=== PATIENT | female | born 1940 | race Caucasian/White ===

== ENCOUNTER → 2018-12-02 | Outpatient (CLI) | payer MEDICARE, OTHER | LOC: CARD 13:28 | PROVIDERS: ATTEND Family Medicine | DX: I10 Essential (primary) hypertension (principal) | CPT/HCPCS: 93306 ==

== ENCOUNTER 2019-04-02 19:46 | Outpatient (CLI) | payer MEDICARE, OTHER | END 2019-04-03 06:20 | disposition home or self-care (01) | LOC: SLEEP 19:46 | PROVIDERS: ATTEND Family Medicine | DX: G47.33 Obstructive sleep apnea (adult) (pediatric) (principal); I10 Essential (primary) hypertension; R09.02 Hypoxemia | CPT/HCPCS: 95810 ==

== ENCOUNTER → 2019-11-18 | Outpatient (CLI) | payer MEDICARE, OTHER ==
[2019-11-18 11:16] LABS: CREATININE SERUM 0.97 MG/DL (0.60-1.30); POTASSIUM 4.2 MMOL/L (3.6-5.0)
[2019-11-18 11:17] LABS: ALBUMIN 4.4 GM/DL (3.2-4.5); BILIRUBIN,TOTAL 0.6 MG/DL (0.1-1.0); CALCIUM 9.6 MG/DL (8.5-10.1); TOTAL PROTEIN 6.9 GM/DL (6.4-8.2)
== END ==
LOC: LAB FS 08:38
PROVIDERS: ATTEND Family Medicine
DX: I10 Essential (primary) hypertension (principal); E03.9 Hypothyroidism, unspecified
CPT/HCPCS: 36415; 80053; 80061; 84443

== ENCOUNTER → 2020-06-26 | Outpatient (CLI) | payer MEDICARE, OTHER ==
[2020-06-26 11:49] LABS: POTASSIUM 4.4 MMOL/L (3.6-5.0)
[2020-06-26 11:50] LABS: ALBUMIN 4.5 GM/DL (3.2-4.5); BILIRUBIN,TOTAL 0.6 MG/DL (0.1-1.0); CREATININE SERUM 0.96 MG/DL (0.60-1.30); TOTAL PROTEIN 6.9 GM/DL (6.4-8.2)
== END ==
LOC: LAB FS 10:26
PROVIDERS: ATTEND Family Medicine
DX: E03.9 Hypothyroidism, unspecified (principal); I10 Essential (primary) hypertension
CPT/HCPCS: 36415; 80053; 80061; 84443

== ENCOUNTER → 2021-05-07 | Outpatient (CLI) | payer MEDICARE, OTHER ==
--- NOTE | 2021-05-07 15:54 | Diagnostic Imaging Report ---
Indication: Pain. Findings: Three-view right shoulder shows a glenohumeral and acromioclavicular osteoarthritis but no fracture, dislocation or bony destructive process. No opaque loose body. Impression: Substantial chronic arthritic changes but no acute appearing abnormality. Dictated by: Dictated on workstation # [id number]
== END ==
LOC: RAD FS 14:31
PROVIDERS: ATTEND Family Medicine
DX: M19.011 Primary osteoarthritis, right shoulder (principal)
CPT/HCPCS: 73030

== ENCOUNTER 2021-09-16 10:04 | Observation (INO) | payer MEDICARE, OTHER ==
[~2021-09-16] VITALS: Ht 157.4 cm; Wt 96.9 kg
[2021-09-16] MEDS: NS IV 1000 ML 1,000 ML IV SCH ×3 (02:00→16:12)
--- NOTE | 2021-09-16 11:55 | ED GI ---
General Chief Complaint: Rect Problems Stated Complaint: RECTAL BLEEDING Nursing Triage Note: AMB TO ED WITH RECTAL BLEEDNG ONSET THIS AM. DOES TAKE MOBIC AND ASA DAILY. Source of Information: Patient Exam Limitations: No Limitations History of Present Illness Date Seen by Provider: Sep 16, 2021 Time Seen by Provider: 11:30 Initial Comments Patient is an 80-year-old female who presents to the emergency department today with a chief complaint of lower GI bleeding. Patient states that she woke up this morning around 7 AM with an urge to go to the bathroom. She states she felt gassy and bloated. When she went to the bathroom she states she filled the toilet with blood. She went at least 7 more times at home before coming to the emergency department where she has subsequently had 2 more episodes of bloody stool. Patient states that she had a colonoscopy possibly 10 years ago. She has since done the Cologuard screening a couple of times and they have been normal. She states she was diagnosed with diverticulosis at her last colonoscopy. Patient does take Mobic 15 mg daily as well as a baby aspirin daily. She is on Pepcid. She has a history of hypertension. She is not a diabetic. She has never had GI bleeding in the past. She is not on any blood thinners. No history of coronary artery disease or stroke. No recent illnesses, no recent use of antibiotics. Denies dysuria, urgency or frequency. She states as she has been waiting to be seen here in the emergency department she has developed a little nausea. She has some lower abdominal discomfort. All other review of systems reviewed and negative except as stated. Timing/Duration: 4-6 Hours Severity/Quality: Severe Location: Suprapubic Radiation: No Radiation Activities at Onset: None Associated Symptoms: Nausea/Vomiting, Weakness (slightly weak feeling) Allergies and Home Medications Allergies Coded Allergies: Penicillins (Verified Allergy, Unknown, 09/16/21) hydrocodone (Verified Allergy, Unknown, 09/16/21) Patient Home Medication List Home Medication List Reviewed: Yes Acetaminophen/Diphenhydramine (Tylenol Pm Ex-Strength Caplet) 1 Each Tablet, 1 EACH PO HS, (Reported) Entered as Reported by: SOPHIE VIGREN on 09/16/21 1605 Last Action: Reviewed Aspirin (Aspirin) 81 Mg Tab.chew, 81 MG PO HS, (Reported) Entered as Reported by: SOPHIE VIRGEN on 09/16/21 160 Last Action: Reviewed Cyanocobalamin (Vitamin B-12) 100 Mcg Tablet, 100 MCG PO DAILY, (Reported) Entered as Reported by: SOPHIE VIRGEN on 09/16/21 161 Last Action: Reviewed Famotidine (Pepcid) 20 Mg Tablet, 20 MG PO, (Reported) Entered as Reported by: SOPHIE VIRGEN on 09/16/21 160 Last Action: Reviewed Irbesartan (Irbesartan) 75 Mg Tablet, 75 MG PO HS, (Reported) Entered as Reported by: SOPHIE VIRGEN on 09/16/211602 Last Action: Reviewed Levothyroxine Sodium (Synthroid) 50 Mcg Tablet, 50 MCG PO DAILY, (Reported) Entered as Reported by: SOPHIE VIRGEN on 09/16/211602 Last Action: Reviewed Meloxicam (Meloxicam) 15 Mg Tablet, 15 MG PO DAILY, (Reported) Entered as Reported by: SOPHIE VIRGEN on 09/16/211602 Last Action: Reviewed Pantoprazole Sodium (Pantoprazole Sodium) 40 Mg Tablet.dr, 40 MG PO DAILY, (Reported) Entered as Reported by: SOPHIE VIRGEN on 09/16/211602 Last Action: Reviewed Polyethylene Glycol 400 (Blink Tears) 15 Ml Drops, 1 DROP OP DAILY PRN for DRY EYES, (Reported) Entered as Reported by: SOPHIE VIRGEN on 09/16/21 160 Last Action: Reviewed Pravastatin Sodium (Pravastatin Sodium) 40 Mg Tablet, 40 MG PO HS, (Reported) Entered as Reported by: SOPHIE VIRGEN on 09/16/211602 Last Action: Reviewed Trazodone HCl (Trazodone HCl) 50 Mg Tablet, 50 MG PO HS, (Reported) Entered as Reported by: SOPHIE VIRGEN on 09/16/211602 Last Action: Reviewed Vit C/E/Zinc/Lutein/Zeaxanthin (Ocuvite Eye Health Gummies) 1 Each Tab.chew, 2 EACH PO DAILY, (Reported) Entered as Reported by: SOPHIE VIRGEN on 09/16/211606 Last Action: Reviewed Vitamin D (Vitamin D3) 10 Mcg Tablet, 400 MCG PO DAILY, (Reported) Entered as Reported by: SOPHIE VIRGEN on 09/16/21 160 Last Action: Reviewed Discontinued Medications Famotidine (Famotidine) 20 Mg Tablet, 20 MG PO HS, (Reported) Discontinued Reason: No Longer Taking Entered as Reported by: SOPHIE VIRGEN on 09/16/21 1604 Last Action: Discontinued Review of Systems Review of Systems Constitutional: see HPI EENTM: No Symptoms Reported Respiratory: No Symptoms Reported Cardiovascular: No Symptoms Reported Gastrointestinal: Abdominal Pain (lower abdominal discomfort), Nausea, Other (bloody stools) Genitourinary: No Symptoms Reported Musculoskeletal: no symptoms reported Skin: no symptoms reported Psychiatric/Neurological: No Symptoms Reported All Other Systems Reviewed Negative Unless Noted: Yes Past Urvtsmt-Tdgfpz-Dihdee Hx Patient Social History Tobacco Use?: No Use of E-Cig and/or Vaping dev: No Substance use?: No Alcohol Use?: No Immunizations Up To Date First/Initial COVID19 Vaccinat: NOV 27 Second COVID19 Vaccination Ant: DECEMBER COVID Vaccine Carrier Blower: [employer] Physical Exam Vital Signs Vital Signs - First Documented 09/16/21 10:13 Temp 36.5 Pulse 89 Resp 18 B/P (MAP) 189/93 (125) Pulse Ox 95 Capillary Refill : Less Than 3 Seconds Height/Weight/BMI Height: '" Weight: lbs. oz. kg; 37.00 BMI Method: General Appearance: WD/WN, no apparent distress HEENT: PERRL/EOMI Neck: normal inspection Respiratory: lungs clear, normal breath sounds, no respiratory distress, no accessory muscle use Cardiovascular: regular rate, rhythm (tachy 122 HR) Gastrointestinal: normal bowel sounds, soft, tenderness (mild LLQ abdominal tenderness to palpation) Rectal: heme positive stool, other (several small nonthrombosed hemmorhoids external, copious yajaira stool in the vault) Extremities: normal range of motion, non-tender, normal inspection, no pedal edema Neurologic/Psychiatric: no motor/sensory deficits, alert, normal mood/affect, oriented x 3 Skin: normal color, warm/dry Progress/Results/Core Measures Results/Orders Lab Results Laboratory Tests Test 09/16/21 12:00 Range/Units White Blood Count 7.4 4.3-11.0 10^3/uL Red Blood Count 4.00 3.80-5.11 10^6/uL Hemoglobin 12.6 11.5-16.0 g/dL Hematocrit 38 35-52 % Mean Corpuscular Volume 96 80-99 fL Mean Corpuscular Hemoglobin 32 25-34 pg Mean Corpuscular Hemoglobin Concent 33 32-36 g/dL Red Cell Distribution Width 12.4 10.0-14.5 % Platelet Count 247 130-400 10^3/uL Mean Platelet Volume 9.9 9.0-12.2 fL Immature Granulocyte % (Auto) 0 % Neutrophils (%) (Auto) 77 H 42-75 % Lymphocytes (%) (Auto) 14 12-44 % Monocytes (%) (Auto) 7 0-12 % Eosinophils (%) (Auto) 1 0-10 % Basophils (%) (Auto) 0 0-10 % Neutrophils # (Auto) 5.7 1.8-7.8 10^3/uL Lymphocytes # (Auto) 1.0 1.0-4.0 10^3/uL Monocytes # (Auto) 0.5 0.0-1.0 10^3/uL Eosinophils # (Auto) 0.1 0.0-0.3 10^3/uL Basophils # (Auto) 0.0 0.0-0.1 10^3/uL Immature Granulocyte # (Auto) 0.0 0.0-0.1 10^3/uL Prothrombin Time 14.7 12.2-14.7 SEC INR Comment 1.1 0.8-1.4 Activated Partial Thromboplast Time 32 24-35 SEC Sodium Level 142 135-145 MMOL/L Potassium Level 4.2 3.6-5.0 MMOL/L Chloride Level 107 98-107 MMOL/L Carbon Dioxide Level 24 21-32 MMOL/L Anion Gap 11 5-14 MMOL/L Blood Urea Nitrogen 19 H 7-18 MG/DL Creatinine 0.96 0.60-1.30 MG/DL Estimat Glomerular Filtration Rate 56 BUN/Creatinine Ratio 20 Glucose Level 115 H 70-105 MG/DL Calcium Level 9.6 8.5-10.1 MG/DL Corrected Calcium 9.3 8.5-10.1 MG/DL Total Bilirubin 0.7 0.1-1.0 MG/DL Aspartate Amino Transf (AST/SGOT) 22 5-34 U/L Alanine Aminotransferase (ALT/SGPT) 18 0-55 U/L Alkaline Phosphatase 56 40-136 U/L Total Protein 6.7 6.4-8.2 GM/DL Albumin 4.4 3.2-4.5 GM/DL My Orders Orders - PERNELL SWEENEY MD Ed Iv/Invasive Line Start (09/16/21 11:49) Cbc With Automated Diff (09/16/21 11:49) Comprehensive Metabolic Panel (09/16/21 11:49) Type And Screen (09/16/21 11:49) Protime With Inr (09/16/21 11:49) Partial Thromboplastin Time (09/16/21 11:49) Ondansetron Injection (Zofran Injectio (09/16/21 12:15) Ns Iv 1000 Ml (Sodium Chloride 0.9%) (09/16/21 12:15) Pantoprazole Injection (Protonix Injecti (09/16/21 13:15) Medications Given in ED Vital Signs/I&O 09/16/21 10:13 Temp 36.5 Pulse 89 Resp 18 B/P (MAP) 189/93 (125) Pulse Ox 95 Blood Pressure Mean: 125 Progress Progress Note : Time: 13:00 Progress Note Patient's hemoglobin at this time with only 6 hours and bleeding is 12. She does get quite tachycardic when she stands with heart rates as high as 130s to 140. She gets quite worn out with moving around getting up to get more comfortable in the bed. Blood pressure currently is 137/84. I have discussed the case with both Dr. Marinelli and Dr. Hguhes. We will keep the patient on clear liquids for now. 40 mg of Protonix twice daily. We will keep her on telemetry on the medical floor. Departure Communication (Admissions) Time/Spoke to Admitting Phy: 12:[address] Hughes; fluids, protonix 40 BID; to medical Time/Spoke to Consulting Phy: 12:[address] Marinelli; keep on clear liquids Impression Primary Impression: GI bleed Qualified Codes: K62.5 - Hemorrhage of anus and rectum Disposition: ADMITTED INPATIENT Condition: Stable Admissions Decision to Admit Reason: Admit from ER (General) Decision to Admit/Date: Sep 16, 2021 Time/Decision to Admit Time: 12:51 Departure-Patient Inst. Referrals: CLARISSA RATLIFF MD (PCP/Family) Primary Care Physician PERNELL SWEENEY MD Sep 16, 2021 11:55
[2021-09-16 12:11] LABS: BASOPHILS % (AUTO) 0 % (0-10); EOSINOPHILS # (AUTO) 0.1 10^3/uL (0.0-0.3); EOSINOPHILS % (AUTO) 1 % (0-10); HEMATOCRIT 38 % (35-52); HEMOGLOBIN 12.6 g/dL (11.5-16.0); LYMPHOCYTES % (AUTO) 14 % (12-44); MEAN CORPUSCULAR HEMOGLOBIN 32 pg (25-34); MEAN CORPUSCULAR HGB CONC 33 g/dL (32-36); MEAN CORPUSCULAR VOLUME 96 fL (80-99); MEAN PLATELET VOLUME 9.9 fL (9.0-12.2); MONOCYTES # (AUTO) 0.5 10^3/uL (0.0-1.0); MONOCYTES % (AUTO) 7 % (0-12); NEUTROPHILS # (AUTO) 5.7 10^3/uL (1.8-7.8); NEUTROPHILS % (AUTO) 77 % (42-75); PLATELET COUNT 247 10^3/uL (130-400); WHITE BLOOD COUNT 7.4 10^3/uL (4.3-11.0)
[2021-09-16] MEDS ORDERED: ONDANSETRON 4 MG/2 ML (SDV) Z0FRAN IVP ONE (12:15)
[2021-09-16 12:27] LABS: ALBUMIN 4.4 GM/DL (3.2-4.5); POTASSIUM 4.2 MMOL/L (3.6-5.0)
[2021-09-16 12:28] LABS: CALCIUM 9.6 MG/DL (8.5-10.1)
[2021-09-16 12:29] LABS: TOTAL PROTEIN 6.7 GM/DL (6.4-8.2)
[2021-09-16 12:31] LABS: BILIRUBIN,TOTAL 0.7 MG/DL (0.1-1.0)
[2021-09-16 12:33] LABS: CREATININE SERUM 0.96 MG/DL (0.60-1.30)
[2021-09-16 12:34] LABS: INR 1.1 (0.8-1.4); PROTHROMBIN TIME PATIENT 14.7 SEC (12.2-14.7)
[2021-09-16] MEDS ORDERED: PANTOPRAZOLE 40 MG (PROTONIX) VIAL IV ONE (13:15)
--- NOTE | 2021-09-16 14:02 | History & Physical-Surgical ---
ERON MOSERLAN MED STUDENT 09/16/21 1402: History of Present Illness History of Present Illness Reason for visit/HPI This is Clara an 80 yo female that presented to the ED with the chief complaint of rectal bleeding. Surgery was consulted. Pt was calm, cooperative, and engaged during questioning. Pt was laying comfortably in exam bed with son in room upon entering. Pt state that this morning she woke up at 7am and felt like she had gas and needed to have a BM. She went into the restroom and noticed a large amount of blood in the stool upon wiping. Blood was mostly dark red in nature but had minimal bright red blood as well. Pt states that this occurred 8 times while at home and then presented to the ED. Since being at the ED it has happened an addition 3 times. She stated that stool was mixed in at the beginning but now it is mostly blood and clots. She continues to state that it feels like gas but is able to make it to the restroom each time. She denies ever experiencing rectal bleeding before. There has been no imaging completed at this point. Her last colonoscopy was 7-8 years ago at [facility] with two cologuard screens completed in the meantime. She lives alone and states that she only eats when she is hungry but there has been no change is appetite compared to her normal. The only lifestyle change is pecans which she has been eating on the last few days. Pt is NPO and only had one sip of water with her morning medications. She complains of fatigue and gas pains throughout abdomen over the last few days. PMH is significant for hypertension, sleep apnea, GERD, hypothyroid, and hyperlipidemia. SH is significant for cholecystectomy, hysterectomy, bilateral knee replacement, ankle surgery with hardware, and an omental tear that required surgery at 5 years of age. Appendix was removed during this surgery as well but Pt remembers very little about process. Family history of a brother with kidney cancer and a sister with kidney disease. Her last hospital stay was in 2009 for the ankle surgery. Date of Admission 09/16/2021 Date Seen by a Provider: Sep 16, 2021 Time Seen by a Provider: 13:10 I consulted on this patient on 09/16/21 13:44 Attending Physician Admitting Physician Kaelyn Atkinson MD Consult Allergies and Home Medications Allergies Coded Allergies: Penicillins (Verified Allergy, Unknown, 09/16/21) hydrocodone (Verified Allergy, Unknown, 09/16/21) Patient Home Medication List Acetaminophen/Diphenhydramine (Tylenol Pm Ex-Strength Caplet) 1 Each Tablet, 1 EACH PO HS, (Reported) Entered as Reported by: SOPHIE VIRGEN on 09/16/21 160 Last Action: Reviewed Aspirin (Aspirin) 81 Mg Tab.chew, 81 MG PO HS, (Reported) Entered as Reported by: SOPHIE VIRGEN on 09/16/21 160 Last Action: Reviewed Cyanocobalamin (Vitamin B-12) 100 Mcg Tablet, 100 MCG PO DAILY, (Reported) Entered as Reported by: SOPHIE VIRGEN on 09/16/21 161 Last Action: Reviewed Famotidine (Pepcid) 20 Mg Tablet, 20 MG PO, (Reported) Entered as Reported by: SOPHIE VIRGEN on 09/16/21 160 Last Action: Reviewed Irbesartan (Irbesartan) 75 Mg Tablet, 75 MG PO HS, (Reported) Entered as Reported by: SOPHIE VIRGEN on 09/16/21 160 Last Action: Reviewed Levothyroxine Sodium (Synthroid) 50 Mcg Tablet, 50 MCG PO DAILY, (Reported) Entered as Reported by: SOPHIE VIRGEN on 09/16/21 160 Last Action: Reviewed Meloxicam (Meloxicam) 15 Mg Tablet, 15 MG PO DAILY, (Reported) Entered as Reported by: SOPHIE VIRGEN on 09/16/21 160 Last Action: Reviewed Pantoprazole Sodium (Pantoprazole Sodium) 40 Mg Tablet.dr, 40 MG PO DAILY, (Reported) Entered as Reported by: SOPHIE VIRGEN on 09/16/21 160 Last Action: Reviewed Polyethylene Glycol 400 (Blink Tears) 15 Ml Drops, 1 DROP OP DAILY PRN for DRY EYES, (Reported) Entered as Reported by: SOPHIE VIRGEN on 09/16/21 160 Last Action: Reviewed Pravastatin Sodium (Pravastatin Sodium) 40 Mg Tablet, 40 MG PO HS, (Reported) Entered as Reported by: SOPHIE VIRGEN on 09/16/21 160 Last Action: Reviewed Trazodone HCl (Trazodone HCl) 50 Mg Tablet, 50 MG PO HS, (Reported) Entered as Reported by: SOPHIE VIRGEN on 09/16/21 160 Last Action: Reviewed Vit C/E/Zinc/Lutein/Zeaxanthin ([employer]) 1 Each Tab.chew, 2 EACH PO DAILY, (Reported) Entered as Reported by: SOPHIE VIRGEN on 09/16/211606 Last Action: Reviewed Vitamin D (Vitamin D3) 10 Mcg Tablet, 400 MCG PO DAILY, (Reported) Entered as Reported by: SOPHIE VIRGEN on 09/16/211606 Last Action: Reviewed Discontinued Medications Famotidine (Famotidine) 20 Mg Tablet, 20 MG PO HS, (Reported) Discontinued Reason: No Longer Taking Entered as Reported by: SOPHIE VIRGEN on 09/16/21 160 Last Action: Discontinued Past Lruyuxf-Kanqtd-Duuwly Hx Patient Social History Tobacco Use?: No Use of E-Cig and/or Vaping dev: No Substance use?: No Alcohol Use?: No Immunizations Up To Date First/Initial COVID19 Vaccinat: NOV 27 Second COVID19 Vaccination Ant: DECEMBER Current Status Primary Language: Spanish Preferred Spoken Language: Spanish Implanted or Applied Medical D: Orthopedic hardware Past Medical History Surgeries: Abdominal, Bowel Surgery, Orthopedic Sleep Apnea High Cholesterol, Hypertension Gastroesophageal Reflux Fractures (ankle) Hypothyroidsim Family Medical History Cancer (kidney), Renal Disease Review of Systems Constitutional: no symptoms reported; No chills, No diaphoresis, No dizziness, No fever, No weakness EENTM: no symptoms reported; No ear pain, No blurred vision, No double vision, No eye pain, No mouth pain, No throat pain Respiratory: no symptoms reported; No cough, No dyspnea on exertion, No hemoptysis, No phlegm, No short of breath Cardiovascular: No chest pain, No edema, No palpitations, No syncope; other (stated that she has had periods of tachycardia while in ED) Gastrointestinal: abdominal pain (gas pain in all quadrants ); No constipation, No diarrhea, No hematemesis, No loss of appetite; melena; No nausea, No vomiting Genitourinary: No discharge, No dysuria; frequency; No hematuria, No hesitancy, No pain Musculoskeletal: joint pain (right shoulder-chronic); No muscle pain Skin: no symptoms reported; No dryness, No lesions, No rash Psychiatric/Neurological: Denies Anxiety, Denies Depressed; Headache; Denies Seizure, Denies Weakness Physical Exam Vital Signs Vital Signs - First Documented 09/16/21 10:13 Temp 36.5 Pulse 89 Resp 18 B/P (MAP) 189/93 (125) Pulse Ox 95 Capillary Refill : Less Than 3 Seconds Height, Weight, BMI Height: '" Weight: lbs. oz. kg; 37.00 BMI Method: General Appearance: No Apparent Distress, WD/WN, Obese Eyes: Bilateral Eye Normal Inspection, Bilateral Eye PERRL HEENT: PERRL/EOMI, Pharynx Normal Neck: Normal Inspection, Non Tender, Supple Respiratory: Chest Non Tender, Lungs Clear, Normal Breath Sounds, No Accessory Muscle Use, No Respiratory Distress Cardiovascular: Regular Rate, Rhythm, No Gallop, No Murmur, Normal Peripheral Pulses Gastrointestinal: Soft, Guarding (LLQ), Tenderness (pain primary in lower quadrants worse in LLQ) Rectal: Deferred Back: Normal Inspection, No Vertebral Tenderness Extremity: Normal Inspection, Non Tender, No Calf Tenderness Neurologic/Psychiatric: Alert, Oriented x3, No Motor/Sensory Deficits, Normal Mood/Affect Skin: Normal Color, Warm/Dry, Other (large abdominal scar on RUQ and smaller scar on RLQ) Lymphatic: No Adenopathy (cervical or supraclavicular) Data Review Labs Laboratory Tests 09/16/21 12:00: White Blood Count 7.4, Red Blood Count 4.00, Hemoglobin 12.6, Hematocrit 38, Mean Corpuscular Volume 96, Mean Corpuscular Hemoglobin 32, Mean Corpuscular Hemoglobin Concent 33, Red Cell Distribution Width 12.4, Platelet Count 247, Mean Platelet Volume 9.9, Immature Granulocyte % (Auto) 0, Neutrophils (%) (Auto) 77H, Lymphocytes (%) (Auto) 14, Monocytes (%) (Auto) 7, Eosinophils (%) (Auto) 1, Basophils (%) (Auto) 0, Neutrophils # (Auto) 5.7, Lymphocytes # (Auto) 1.0, Monocytes # (Auto) 0.5, Eosinophils # (Auto) 0.1, Basophils # (Auto) 0.0, Immature Granulocyte # (Auto) 0.0, Prothrombin Time 14.7, INR Comment 1.1, Activated Partial Thromboplast Time 32, Sodium Level 142, Potassium Level 4.2, Chloride Level 107, Carbon Dioxide Level 24, Anion Gap 11, Blood Urea Nitrogen 19H, Creatinine 0.96, Estimat Glomerular Filtration Rate 56, BUN/Creatinine Ratio 20, Glucose Level 115H, Calcium Level 9.6, Corrected Calcium 9.3, Total Bilirubin 0.7, Aspartate Amino Transf (AST/SGOT) 22, Alanine Aminotransferase (ALT/SGPT) 18, Alkaline Phosphatase 56, Total Protein 6.7, Albumin 4.4 Assessment/Plan Assessment/Plan Assessment/Plan Assessment: acute rectal bleeding paroxysmal diffuse abdominal pain right shoulder pain Plan: monitor symptoms monitor vitals refer to imaging if symptoms progress or get worse continue home medication continue IV fluids NOLBERTOROXYLASHAWN B DO 09/16/21 1622: History of Present Illness History of Present Illness Reason for visit/HPI Surgery asked to consult regarding rectal bleed. HPI per ED: Patient is an 80-year-old female who presents to the emergency department today with a chief complaint of lower GI bleeding. Patient states that she woke up this morning around 7 AM with an urge to go to the bathroom. She states she felt gassy and bloated. When she went to the bathroom she states she filled the toilet with blood. She went at least 7 more times at home before coming to the emergency department where she has subsequently had 2 more episodes of bloody stool. Patient states that she had a colonoscopy possibly 10 years ago. She has since done the Cologuard screening a couple of times and they have been normal. She states she was diagnosed with diverticulosis at her last colonoscopy. Patient does take Mobic 15 mg daily as well as a baby aspirin daily. She is on Pepcid. She has a history of hypertension. She is not a diabetic. She has never had GI bleeding in the past. She is not on any blood thinners. No history of coronary artery disease or stroke. When I spoke to her she was still having bloody BMs, "3 since I came up stairs". She thinks she did Cologuard test over the summer and it was negative. States she has abdominal discomfort, not really pain. Denied hematemesis or coffee ground emesis. Time Seen by a Provider: 15:51 Allergies and Home Medications Allergies Coded Allergies: Penicillins (Verified Allergy, Unknown, 09/16/21) hydrocodone (Verified Allergy, Unknown, 09/16/21) Patient Home Medication List Home Medication List Reviewed: Yes Acetaminophen/Diphenhydramine (Tylenol Pm Ex-Strength Caplet) 1 Each Tablet, 1 EACH PO HS, (Reported) Entered as Reported by: SOPHIE VIRGEN on 09/16/21 1605 Last Action: Reviewed Aspirin (Aspirin) 81 Mg Tab.chew, 81 MG PO HS, (Reported) Entered as Reported by: SOPHIE VIRGEN on 09/16/21 160 Last Action: Reviewed Cyanocobalamin (Vitamin B-12) 100 Mcg Tablet, 100 MCG PO DAILY, (Reported) Entered as Reported by: SOPHIE VIRGEN on 09/16/21 161 Last Action: Reviewed Famotidine (Pepcid) 20 Mg Tablet, 20 MG PO, (Reported) Entered as Reported by: SOPHIE VIRGEN on 09/16/21 160 Last Action: Reviewed Irbesartan (Irbesartan) 75 Mg Tablet, 75 MG PO HS, (Reported) Entered as Reported by: SOPHIE VIRGEN on 09/16/21 160 Last Action: Reviewed Levothyroxine Sodium (Synthroid) 50 Mcg Tablet, 50 MCG PO DAILY, (Reported) Entered as Reported by: SOPHIE VIRGEN on 09/16/21 160 Last Action: Reviewed Meloxicam (Meloxicam) 15 Mg Tablet, 15 MG PO DAILY, (Reported) Entered as Reported by: SOPHIE VIRGEN on 09/16/21 160 Last Action: Reviewed Pantoprazole Sodium (Pantoprazole Sodium) 40 Mg Tablet.dr, 40 MG PO DAILY, (Reported) Entered as Reported by: SOPHIE VIRGEN on 09/16/21 160 Last Action: Reviewed Polyethylene Glycol 400 (Blink Tears) 15 Ml Drops, 1 DROP OP DAILY PRN for DRY EYES, (Reported) Entered as Reported by: SOPHIE VIRGEN on 09/16/21 160 Last Action: Reviewed Pravastatin Sodium (Pravastatin Sodium) 40 Mg Tablet, 40 MG PO HS, (Reported) Entered as Reported by: SOPHIE VIRGEN on 09/16/21 160 Last Action: Reviewed Trazodone HCl (Trazodone HCl) 50 Mg Tablet, 50 MG PO HS, (Reported) Entered as Reported by: SOPHIE VIRGEN on 09/16/21 160 Last Action: Reviewed Vit C/E/Zinc/Lutein/Zeaxanthin ([employer] Gummies) 1 Each Tab.chew, 2 EACH PO DAILY, (Reported) Entered as Reported by: SOPHIE VIRGEN on 09/16/211606 Last Action: Reviewed Vitamin D (Vitamin D3) 10 Mcg Tablet, 400 MCG PO DAILY, (Reported) Entered as Reported by: SOPHIE VIRGEN on 09/16/211606 Last Action: Reviewed Discontinued Medications Famotidine (Famotidine) 20 Mg Tablet, 20 MG PO HS, (Reported) Discontinued Reason: No Longer Taking Entered as Reported by: SOPHIE VIRGEN on 09/16/21 160 Last Action: Discontinued Past Efhjdut-Uokkju-Cjhsxo Hx Patient Social History Smoking Status: Never a Smoker Use of E-Cig and/or Vaping dev: No Substance use?: No Current Status Communicates: Verbally Primary Language: Spanish Sensory deficits: Other (none) Past Medical History Surgeries: Abdominal, Bowel Surgery, Orthopedic Sleep Apnea High Cholesterol, Hypertension Sexually Transmitted Disease: No Gastroesophageal Reflux, Diverticulosis, Hiatal Hernia Fractures (ankle) Hypothyroidsim Loss of Vision: Denies Hearing Impairment: Denies Family Medical History Cancer (kidney), Renal Disease Review of Systems Constitutional: No chills, No diaphoresis, No dizziness, No fever, No weakness EENTM: No ear pain, No blurred vision, No double vision, No eye pain, No mouth pain, No throat pain Respiratory: No cough, No dyspnea on exertion, No hemoptysis, No phlegm, No short of breath Cardiovascular: No chest pain, No edema, No palpitations, No syncope; other (stated that she has had periods of tachycardia while in ED) Gastrointestinal: abdominal pain (gas pain in all quadrants ); No constipation, No diarrhea, No hematemesis, No loss of appetite; melena; No nausea, No vomiting; other (hematochezia) Genitourinary: No discharge, No dysuria; frequency; No hematuria, No hesitancy Musculoskeletal: joint pain (right shoulder-chronic), joint swelling; No muscle pain Skin: No dryness, No lesions, No rash Psychiatric/Neurological: Denies Anxiety, Denies Depressed; Headache; Denies Seizure, Denies Weakness Physical Exam General Appearance: No Apparent Distress, WD/WN, Obese Eyes: Bilateral Eye PERRL, Bilateral Eye EOMI HEENT: Pharynx Normal, Moist Mucous Membranes; No Pale Conjunctivae (L), No Pale Conjunctivae (R) Neck: Full Range of Motion, Non Tender, Supple Respiratory: Chest Non Tender, Lungs Clear, Normal Breath Sounds, No Accessory Muscle Use, No Respiratory Distress Cardiovascular: Regular Rate, Rhythm, No Gallop, No Murmur, Normal Peripheral Pulses Gastrointestinal: Soft, Guarding (LLQ), Tenderness (pain primary in lower quadrants worse in LLQ) Rectal: Deferred Back: Normal Inspection, No Vertebral Tenderness Extremity: Non Tender, No Calf Tenderness, No Pedal Edema Neurologic/Psychiatric: Alert, Oriented x3, No Motor/Sensory Deficits, Normal Mood/Affect Skin: Normal Color, Warm/Dry, Other (large abdominal scar on RUQ and smaller scar on RLQ) Lymphatic: No Adenopathy (cervical or supraclavicular) Assessment/Plan Assessment/Plan Admission Diagonsis Rectal bleed HTN Admission Status: Other Assessment/Plan Assessment: acute rectal bleeding paroxysmal diffuse abdominal pain right shoulder pain Plan: Will start prepping pt tonight and plan on doing EGD and Colonoscopy tomorrow. We discussed risks and complications, not limited to pain, bleeding, infection, intestinal or esophageal perforation and need for further procedure. I also talked to her about increased bleeding because she takes a daily aspirin. She understood and all questions answered to her satisfaction. Consent will also be obtained. Supervisory-Addendum Brief Verification & Attestation Participated in pt care: history, MDM, physical Personally performed: exam, history, MDM, supervision of care Care discussed with: Medical Student Procedures: n/a Verification and Attestation of Medical Student E/M Service A medical student performed and documented this service. I then reviewed and verified all information documented by the medical student and made modifications to such information, when appropriate. I personally performed a physical exam, medical decision making and then discussed any differences between the notes and made revisions as necessary to create one note. Lashawn Ramos , 09/16/21 , 16:27 NELLIE MOSER MED STUDENT Sep 16, 2021 14:02 LASHAWN RAMOS DO Sep 16, 2021 16:22
[2021-09-16 15:00] VITALS: BP 144/86
[2021-09-16] MEDS ORDERED: PANT40TA52 PO (16:03)
[2021-09-16] MEDS ORDERED: IRBE75TA9 PO (16:03)
[2021-09-16] MEDS ORDERED: TRZ50T PO (16:03)
[2021-09-16] MEDS ORDERED: LEVO50TA PO (16:03)
[2021-09-16] MEDS ORDERED: PRAV40TA2 PO (16:03)
[2021-09-16] MEDS ORDERED: MELO15TA39 PO (16:03)
[2021-09-16] MEDS ORDERED: FAMO-119 PO (16:04)
[2021-09-16] MEDS ORDERED: FAMO20TA5 PO (16:04)
[2021-09-16] MEDS ORDERED: ACET-3075 PO (16:05)
[2021-09-16] MEDS ORDERED: ASPI-999 PO (16:06)
[2021-09-16] MEDS ORDERED: VIT1TAB.9 PO (16:07)
[2021-09-16] MEDS ORDERED: NF-VITD400 PO (16:07)
[2021-09-16] MEDS ORDERED: [UNRECOGNIZED DRUG - CODE] OP (16:08)
[2021-09-16] MEDS ORDERED: CYAN100T37 PO (16:10)
[2021-09-16 16:27] VITALS: BP 114/72
[2021-09-16] MEDS ORDERED: polyethylene glycoL Bowel Prep(MIRALAX) 238 GM PO SCH (18:00)
[2021-09-16 19:28] VITALS: BP 122/68
[2021-09-16] MEDS ORDERED: ONDANSETRON 4 MG/2 ML (SDV) Z0FRAN IVP PRN (21:00)
[2021-09-16] MEDS: PANTOPRAZOLE 40 MG (PROTONIX) VIAL IV SCH (21:13)
[2021-09-16 21:44] LABS: HEMOGLOBIN 10.5 g/dL (11.5-16.0)
--- NOTE | 2021-09-16 21:44 | History & Physical-Hospitalist ---
History of Present Illness HPI/Chief Complaint Clara Pennington is an 80 year old female with PMH HTN, HLD, GERD, hypothyroidism, who presented with bright red blood per rectum. She had her first episode this morning. She passed dark red blood. She had eight bloody bowel movements at home. She had three in the ER and one since arriving to the medical floor. She has been having some lightheadedness recently. She denies abdominal pain. She denies nausea and vomiting. She denies ever having bloody stools in the past. She has had an EGD in the past due to GERD. She has had screening colonoscopies also. She denies fevers and chills. She denies chest pain and shortness of breath. She takes Meloxicam daily due to joint pain. Source: patient Exam Limitations: no limitations Date Seen 09/16/21 Time Seen by a Provider: 14:50 Attending Physician Bhaskar Rodriguez MD PCP Kaelyn Atkinson MD Referring Physician Date of Admission Sep 16, 2021 at 13:03 Home Medications & Allergies Home Medications Reviewed patient Home Medication Reconciliation performed by pharmacy medication reconciliations community development technician and/or nursing. Patients Allergies have been reviewed. Allergies Allergies Coded Allergies Penicillins (Verified Allergy, Unknown, 09/16/21) hydrocodone (Verified Allergy, Unknown, 09/16/21) Past Wgsnsyp-Ktqoni-Gfdfnm Hx Patient Social History Tobacco Use?: No Smoking Status: Never a Smoker Use of E-Cig and/or Vaping dev: No Substance use?: No Alcohol Use?: No Pt feels they are or have been: No Immunizations Up To Date Date of Influenza Vaccine: Aug 28, 2021 First/Initial COVID19 Vaccinat: November 2020 Second COVID19 Vaccination Ant: December 2020 Current Status Advance Directives: Yes Advance Directive Location: Copy from prev record Communicates: Verbally Primary Language: Amharic Preferred Spoken Language: Amharic Is interpretation needed?: No Sensory deficits: Other (none) Implanted or Applied Medical D: Orthopedic hardware Past Medical History Surgeries: Abdominal, Bowel Surgery, Orthopedic Sleep Apnea High Cholesterol, Hypertension Sexually Transmitted Disease: No Gastroesophageal Reflux, Diverticulosis, Hiatal Hernia Fractures (ankle) Hypothyroidsim Loss of Vision: Denies Hearing Impairment: Denies Family Medical History Cancer (kidney), Renal Disease Review of Systems Constitutional: dizziness EENTM: no symptoms reported Respiratory: no symptoms reported Cardiovascular: no symptoms reported Gastrointestinal: melena Genitourinary: no symptoms reported Musculoskeletal: no symptoms reported Skin: no symptoms reported Psychiatric/Neurological: No Symptoms Reported Physical Exam Physical Exam Vital Signs Vital Signs - First Documented 09/16/21 09/16/21 10:13 14:13 Temp 36.5 Pulse 89 Resp 18 B/P (MAP) 189/93 (125) Pulse Ox 95 O2 Delivery Room Air Capillary Refill : Less Than 3 Seconds Height, Weight, BMI Height: '" Weight: lbs. oz. kg; 39.11 BMI Method: General Appearance: No Apparent Distress, Obese HEENT: PERRL/EOMI, Pharynx Normal Neck: Normal Inspection, Supple Respiratory: Lungs Clear, Normal Breath Sounds, No Respiratory Distress Cardiovascular: Regular Rate, Rhythm, No Edema, No Murmur Gastrointestinal: Normal Bowel Sounds, Non Tender, Soft Extremity: Normal Inspection, Non Tender, No Pedal Edema Neurologic/Psychiatric: Alert, Oriented x3, No Motor/Sensory Deficits, Normal Mood/Affect Skin: Normal Color, Warm/Dry Results Results/Procedures Labs Laboratory Tests 09/16/21 12:00 Patient resulted labs reviewed. Assessment/Plan Admission Diagnosis Acute GI bleeding Admission Status: Observation Assessment and Plan Acute GI bleeding Hgb 12 on arrival Type and screen done Repeat Hgb this evening Transfuse for Hgb <7 Surgery consulted IV PPI BID IV fluids Hold meloxicam Clear liquid diet HTN HLD GERD Hypothyroidism Hold home meds Obesity Clinically significant, no acute management needs DVT prophylaxis: held due to active bleeding Diagnosis/Problems Diagnosis/Problems (1) Acute GI bleeding Status: Acute BHASKAR RODRIGUEZ MD Sep 16, 2021 21:44
[2021-09-17] VITALS (9 sets, daily range): BP systolic 93–137; BP diastolic 51–85
[2021-09-17] MEDS: NS IV 1000 ML 1,000 ML IV SCH ×4 (03:39→12:44)
[2021-09-17 05:52] LABS: BASOPHILS % (AUTO) 1 % (0-10); EOSINOPHILS # (AUTO) 0.1 10^3/uL (0.0-0.3); EOSINOPHILS % (AUTO) 2 % (0-10); HEMATOCRIT 33 % (35-52); HEMOGLOBIN 10.8 g/dL (11.5-16.0); LYMPHOCYTES # (AUTO) 1.6 10^3/uL (1.0-4.0); LYMPHOCYTES % (AUTO) 26 % (12-44); MEAN CORPUSCULAR HEMOGLOBIN 32 pg (25-34); MEAN CORPUSCULAR HGB CONC 33 g/dL (32-36); MEAN CORPUSCULAR VOLUME 97 fL (80-99); MEAN PLATELET VOLUME 10.4 fL (9.0-12.2); MONOCYTES # (AUTO) 0.6 10^3/uL (0.0-1.0); MONOCYTES % (AUTO) 10 % (0-12); NEUTROPHILS # (AUTO) 3.8 10^3/uL (1.8-7.8); NEUTROPHILS % (AUTO) 62 % (42-75); PLATELET COUNT 241 10^3/uL (130-400); WHITE BLOOD COUNT 6.2 10^3/uL (4.3-11.0)
[2021-09-17] MEDS: PANTOPRAZOLE 40 MG (PROTONIX) VIAL IV SCH ×2 (07:51→19:54)
--- NOTE | 2021-09-17 08:45 | Progress Note - Surgery ---
NELLIE MOSER MED STUDENT 09/17/21 0845: Subjective Date Seen by a Provider: Sep 17, 2021 Time Seen by a Provider: 07:30 Subjective/Events-last exam This is Clara a 80 yo female on day 2 of her hospital stay with the chief complaint of rectal bleeding. Pt was laying in bed speaking with her son upon entering the room. She was calm, cooperative, and engaged during questioning. Pt is NPO and has had nothing to eat or drink since Thursday. She is scheduled to have a colonoscopy/EGD with Dr. Ramos later today to look for the source of the bleeding. She has completed bowel prep and stated that she got very little sleep and had numerous BMs. There continued to be dark red blood in the stool and bright red blood on the toilet paper after wiping until this morning. She states that BMs this morning had no obvious blood. Pt complains of diffuse abdominal discomfort that feels like gas pain. Review of Systems Gastrointestinal: Abdominal Pain, Diarrhea, Melena Focused Exam Respiratory: Chest Non Tender, Lungs Clear, Normal Breath Sounds, No Accessory Muscle Use, No Respiratory Distress Cardiovascular: Regular Rate, Rhythm, No Edema, No Gallop, No Murmur, Normal Peripheral Pulses Skin: normal color, warm/dry Objective Exam Vital Signs Date Time Temp Pulse Resp B/P (MAP) Pulse Ox O2 Delivery O2 Flow Rate FiO2 09/17/21 07:35 37.0 66 20 116/69 (85) 97 Room Air 09/17/21 07:00 69 09/17/21 04:45 36.8 74 20 128/85 (99) 96 Room Air 09/17/21 01:00 76 09/17/21 00:00 36.8 65 18 113/71 (85) 96 Room Air 09/16/21 20:00 Room Air 09/16/21 19:28 36.9 73 20 122/68 (86) 98 Room Air 09/16/21 19:00 80 09/16/21 16:27 36.8 71 20 114/72 (86) 97 Room Air 09/16/21 15:50 79 09/16/21 15:30 94 Room Air 09/16/21 15:00 36.9 78 22 144/86 (105) 94 Room Air 09/16/21 14:13 73 18 150/76 100 Room Air 11/29/21 10:13 36.5 89 18 189/93 (090) 95 I & O 09/17/21 07:00 Intake Total 2518 ml Balance 2518 ml Capillary Refill : Less Than 3 Seconds General Appearance: No Apparent Distress, WD/WN, Obese HEENT: PERRL/EOMI, Pharynx Normal Neck: Normal Inspection, Non Tender, Supple Respiratory: Chest Non Tender, Lungs Clear, Normal Breath Sounds, No Accessory Muscle Use, No Respiratory Distress Cardiovascular: Regular Rate, Rhythm, No Edema, No Gallop, No Murmur, Normal Peripheral Pulses Gastrointestinal: soft, tenderness (mild LLQ abdominal tenderness to palpation) Extremity: Normal Inspection, Non Tender, No Pedal Edema Neurologic/Psychiatric: Alert, Oriented x3, No Motor/Sensory Deficits, Normal Mood/Affect Skin: Normal Color, Warm/Dry Lymphatic: No Adenopathy (cervical or supraclavicular) Results Lab Laboratory Tests 09/16/21 12:00: White Blood Count 7.4, Red Blood Count 4.00, Hemoglobin 12.6, Hematocrit 38, Mean Corpuscular Volume 96, Mean Corpuscular Hemoglobin 32, Mean Corpuscular Hemoglobin Concent 33, Red Cell Distribution Width 12.4, Platelet Count 247, Mean Platelet Volume 9.9, Immature Granulocyte % (Auto) 0, Neutrophils (%) (Auto) 77H, Lymphocytes (%) (Auto) 14, Monocytes (%) (Auto) 7, Eosinophils (%) (Auto) 1, Basophils (%) (Auto) 0, Neutrophils # (Auto) 5.7, Lymphocytes # (Auto) 1.0, Monocytes # (Auto) 0.5, Eosinophils # (Auto) 0.1, Basophils # (Auto) 0.0, Immature Granulocyte # (Auto) 0.0, Prothrombin Time 14.7, INR Comment 1.1, Activated Partial Thromboplast Time 32, Sodium Level 142, Potassium Level 4.2, Chloride Level 107, Carbon Dioxide Level 24, Anion Gap 11, Blood Urea Nitrogen 19H, Creatinine 0.96, Estimat Glomerular Filtration Rate 56, BUN/Creatinine Ratio 20, Glucose Level 115H, Calcium Level 9.6, Corrected Calcium 9.3, Total Bilirubin 0.7, Aspartate Amino Transf (AST/SGOT) 22, Alanine Aminotransferase (ALT/SGPT) 18, Alkaline Phosphatase 56, Total Protein 6.7, Albumin 4.4 09/16/21 17:35: 09/16/21 21:38: Hemoglobin 10.5L, Hematocrit 32L 09/17/21 05:33: White Blood Count 6.2, Red Blood Count 3.41L, Hemoglobin 10.8L, Hematocrit 33L, Mean Corpuscular Volume 97, Mean Corpuscular Hemoglobin 32, Mean Corpuscular Hemoglobin Concent 33, Red Cell Distribution Width 12.6, Platelet Count 241, Mean Platelet Volume 10.4, Immature Granulocyte % (Auto) 0, Neutrophils (%) (Auto) 62, Lymphocytes (%) (Auto) 26, Monocytes (%) (Auto) 10, Eosinophils (%) (Auto) 2, Basophils (%) (Auto) 1, Neutrophils # (Auto) 3.8, Lymphocytes # (Auto) 1.6, Monocytes # (Auto) 0.6, Eosinophils # (Auto) 0.1, Basophils # (Auto) 0.0, Immature Granulocyte # (Auto) 0.0 Assessment/Plan Assessment/Plan Assessment/Plan Assessment: acute rectal bleeding paroxysmal diffuse abdominal pain right shoulder pain anemia- Hgb of 10.8 on 09/17 Plan: EGD/Coloscopy later today monitor symptoms closely RITESH RAMOS DO 09/17/21 1113: Subjective Time Seen by a Provider: 11:04 Subjective/Events-last exam Pt seen and examined, no new complaints; "the prep wasn't that bad". Questionable still having some brown BM's. Review of Systems Pulmonary: No Dyspnea, No Cough Cardiovascular: No: Chest Pain, Palpitations Gastrointestinal: Abdominal Pain, Diarrhea, Melena Objective Exam General Appearance: No Apparent Distress, WD/WN, Obese HEENT: PERRL/EOMI, Pharynx Normal Respiratory: Lungs Clear, Normal Breath Sounds, No Accessory Muscle Use, No Respiratory Distress Cardiovascular: Regular Rate, Rhythm, No Murmur Gastrointestinal: soft, tenderness (mild LLQ abdominal tenderness to palpation) Skin: Normal Color, Warm/Dry Assessment/Plan Assessment/Plan Assessment/Plan Assessment: acute rectal bleeding paroxysmal diffuse abdominal pain right shoulder pain anemia- Hgb of 10.8 on 09/17, from 12.6 Plan: EGD/Coloscopy now, monitor symptoms closely Supervisory-Addendum Brief Verification & Attestation Participated in pt care: history, MDM, physical Personally performed: exam, history, MDM, supervision of care Care discussed with: Medical Student Procedures: n/a Verification and Attestation of Medical Student E/M Service A medical student performed and documented this service. I then reviewed and verified all information documented by the medical student and made modifications to such information, when appropriate. I personally performed a physical exam, medical decision making and then discussed any differences between the notes and made revisions as necessary to create one note. Ritesh Ramos , 09/17/21 , 11:13 NELLIE MOSER MED STUDENT Sep 17, 2021 08:45 RITESH RAMOS DO Sep 17, 2021 11:13
[2021-09-17 10:44] LABS: POTASSIUM 3.9 MMOL/L (3.6-5.0)
[2021-09-17 10:45] LABS: CALCIUM 8.4 MG/DL (8.5-10.1)
[2021-09-17 10:49] LABS: CREATININE SERUM 0.78 MG/DL (0.60-1.30)
[2021-09-17] MEDS ORDERED: LACTATED RINGERS 1,000 ML IV ONE (11:03)
[2021-09-17] MEDS ORDERED: LACTATED RINGERS 1,000 ML IV STA (11:11)
[2021-09-17] MEDS ORDERED: HURRICAINE EXT TUBE (BENZOCAINE) XX PRN (11:15)
[2021-09-17] MEDS ORDERED: PROPOFOL INJECTION 50 ML IV ONE (11:15)
[2021-09-17] MEDS ORDERED: BISACODYL 5 MG (DULCOLAX) TABLET PO SCH ×2 (12:00→15:00)
--- NOTE | 2021-09-17 13:30 | Anesthesia-General Post-Op ---
MAC Patient Condition Mental Status/LOC: Same as Preop Cardiovascular: Satisfactory Nausea/Vomiting: Absent Respiratory: Satisfactory Pain: Controlled Complications: Absent Post Op Complications Complications None Follow Up Care/Instructions Patient Instructions None needed. Anesthesiology Discharge Order Discharge Order Patient is doing well, no complaints, stable vital signs, no apparent adverse anesthesia problems. No complications reported per nursing. FELICITAS BRANDT CRNA Sep 17, 2021 13:30
--- NOTE | 2021-09-17 13:51 | Progress Note - Hospitalist ---
Subjective HPI/CC On Admission Date Seen by Provider: Sep 17, 2021 Time Seen by Provider: 10:55 Clara Pennington is an 80 year old female with PMH HTN, HLD, GERD, hypothyroidism, who presented with bright red blood per rectum. She had her first episode this morning. She passed dark red blood. She had eight bloody bowel movements at [facility]. She had three in the ER and one since arriving to the medical floor. She has been having some lightheadedness recently. She denies abdominal pain. She denies nausea and vomiting. She denies ever having bloody stools in the past. She has had an EGD in the past due to GERD. She has had screening colonoscopies also. She denies fevers and chills. She denies chest pain and shortness of breath. She takes Meloxicam daily due to joint pain. Subjective/Events-last exam She has still been having bowel movements but there has been no more blood. She has still been a bit lightheaded. She is not having any chest pain or shortness of breath. Objective Exam Vital Signs Vital Signs Date Time Temp Pulse Resp B/P (MAP) Pulse Ox O2 Delivery O2 Flow Rate FiO2 09/17/21 12:44 80 09/17/21 12:10 36.9 18 119/74 (89) 97 Room Air 09/17/21 11:54 10 Capillary Refill : Less Than 3 Seconds General Appearance: No Apparent Distress, Obese Respiratory: Lungs Clear, Normal Breath Sounds, No Respiratory Distress Cardiovascular: Regular Rate, Rhythm, No Edema, No Murmur Gastrointestinal: Normal Bowel Sounds, Non Tender, Soft Extremity: Normal Inspection, Non Tender, No Pedal Edema Neurologic/Psychiatric: Alert, Oriented x3, No Motor/Sensory Deficits, Normal Mood/Affect Skin: Normal Color, Warm/Dry Results/Procedures Lab Laboratory Tests 09/16/21 21:38 09/17/21 05:33 09/17/21 10:25 Patient resulted labs reviewed. Assessment/Plan Assessment and Plan Assess & Plan/Chief Complaint Acute GI bleeding Hgb 10.8, stable Transfuse for Hgb <7 Surgery planning for EGD/colonoscopy today IV PPI BID IV fluids Hold meloxicam HTN HLD GERD Hypothyroidism Hold home meds Obesity Clinically significant, no acute management needs DVT prophylaxis: held due to active bleeding Diagnosis/Problems Diagnosis/Problems (1) Acute GI bleeding Status: Acute MICHAEL,BHASKAR M MD Sep 17, 2021 13:51
--- NOTE | 2021-09-17 14:51 | Progress Note-Post Operative ---
Post-Operative Progess Note Surgeon (s)/Laboratory Sample Carrier (s) Surgeon LASHAWN RAMOS DO Laboratory Sample Carrier: ZENAIDA Calvin Pre-Operative Diagnosis rectal bleed Post-Operative Diagnosis Esophagitis Hiatal hernia Gastric Polyps Diverticula int hemorrhoids Procedure & Operative Findings Date of Procedure 09/17/21 Procedure Performed/Findings EGD with bx Colonoscopy PROCEDURE NOTE: After informed consent was obtained, the patient was brought to the endoscopy suite, placed in bed in left lateral decubitus position. She was administered IV sedation by the [employer]URAL ENGINEER who then monitored vitals the entire time, heart rate, blood pressure and pulse ox and the scope was inserted down the mouth through the esophagus into the stomach. On the way down, noted some mild esophagitis, took a picture, pushed into the stomach and pushed past the antrum into the duodenum; duodenum looked good. Pulled back and then retroflexed the scope, saw a small hiatal hernia, took a picture of this and noted some gastric polyps; took pictures of these as well. Then pulled the scope into the GE junction, took another picture of the hiatal hernia and then did a biopsy of the GE junction. Pushed the scope back into the stomach, suctioned all the air out of the stomach. At this point pulled the scope up the esophagus and out the mouth. Switched camera, switched gloves, went down below, started the colonoscopy. Pushed all the way into about 140 cm to get all the way to cecum, took a picture of the appendiceal orifice and noted the ileocecal valve. Throughout the colon noted large diverticula, but no blood. Slowly withdrew the scope, insufflating to look circumferentially at the mcmahon starting in the cecum, up the ascending colon to the hepatic flexure, then down the transverse colon, splenic flexure, into the descending colon, down into the sigmoid and finally into the rectum, retroflexed in the rectal vault, saw some minimal internal hemorrhoids and took a picture of this. The patient tolerated the procedure and she recovered in the endoscopy suite. Anesthesia Type IV sedation by [employer]URAL ENGINEER Estimated Blood Loss Estimated blood loss (mL): scant Specimens/Packing Specimens Removed GE jxn bx LASHAWN RAMOS DO Sep 17, 2021 14:51
[2021-09-18] VITALS: BP 110/70
[2021-09-18 03:35] VITALS: BP 145/69
[2021-09-18 08:00] VITALS: BP 152/70
[2021-09-18] MEDS: PANTOPRAZOLE 40 MG (PROTONIX) VIAL IV SCH (10:01)
--- NOTE | 2021-09-18 11:32 | Progress Note - Surgery ---
GENIA MADRID 09/18/21 1132: Subjective Date Seen by a Provider: Sep 18, 2021 Time Seen by a Provider: 06:52 Subjective/Events-last exam Pt reports that she has only had 1 small stool in the last day. Denied having any blood in her stool. States that she is currently able to pass gas and has been passing gas frequently. When asked she denied having any other problems. Review of Systems General: No Chills, No Night Sweats, No Fatigue HEENT: Head Aches (states that she frequently gets head aches); No Visual Changes Pulmonary: No Dyspnea, No Cough Cardiovascular: No: Chest Pain, Palpitations Gastrointestinal: No: Nausea, Vomiting, Abdominal Pain, Diarrhea, Hematochezia Genitourinary: No Dysuria, No Frequency Musculoskeletal: No: neck pain, back pain, leg pain Neurological: No: Weakness, Numbness Objective Exam Vital Signs Date Time Temp Pulse Resp B/P (MAP) Pulse Ox O2 Delivery O2 Flow Rate FiO2 09/18/21 08:00 36.7 73 20 152/70 (97) 96 Room Air 09/18/21 07:00 84 09/18/21 03:35 36.5 68 18 145/69 (94) 98 Room Air 09/18/21 01:00 72 09/18/21 00:00 36.9 65 16 110/70 (83) 98 Room Air 09/17/21 20:00 97 Room Air 09/17/21 19:29 37.3 67 18 115/69 (84) 96 Room Air 09/17/21 19:00 76 09/17/21 15:20 36.6 74 20 115/70 (85) 95 Room Air 09/17/21 12:44 80 09/17/21 12:10 36.9 68 18 119/74 (89) 97 Room Air 09/17/21 11:54 86 18 100 OxyMask 10 09/17/21 11:50 86 18 97 OxyMask 10 09/17/21 11:45 83 18 97 OxyMask 10 I & O 09/18/21 07:00 Intake Total 1560 ml Balance 1560 ml Capillary Refill : Less Than 3 Seconds General Appearance: No Apparent Distress, Obese HEENT: PERRL/EOMI; No Photophobia Neck: Normal Inspection, Non Tender, Supple Respiratory: Lungs Clear, Normal Breath Sounds, No Respiratory Distress Cardiovascular: Regular Rate, Rhythm, No Murmur Gastrointestinal: soft, tenderness (diffuse tenderness) Extremity: Normal Inspection, Non Tender, Pedal Edema (Right> left. Pt states this is normal for her.) Neurologic/Psychiatric: Alert, Oriented x3, No Motor/Sensory Deficits, Normal Mood/Affect Skin: Normal Color, Warm/Dry Lymphatic: No Adenopathy Results Lab Laboratory Tests 09/18/21 05:30: Hemoglobin 9.0L, Hematocrit 28L Microbiology 09/16/21 MRSA Screen - Final, Complete MRSA not isolated Assessment/Plan Assessment/Plan Assessment/Plan Assessment: acute rectal bleeding paroxysmal diffuse abdominal pain anemia- Hgb of 10.8 on 09/17, today is 9 Plan: EGD/Coloscopy done yesterday showed a small hiatal hernia and large diverticula in the colon with no bleeding. Hemoglobin has decreased today. Pt denies any bloody stools. Continue to monitor. Continue anti-emetics as needed. RITESH MARINELLI DO 09/18/21 1914: Subjective Time Seen by a Provider: 12:06 Subjective/Events-last exam Pt seen and examined, states she is waiting to go home. She denies any more hematochezia and states she feels good. Review of Systems General: No Chills, No Night Sweats Pulmonary: No Dyspnea, No Cough Cardiovascular: No: Chest Pain, Palpitations Gastrointestinal: No: Nausea, Vomiting, Abdominal Pain Genitourinary: No Dysuria, No Frequency Objective Exam General Appearance: No Apparent Distress, Obese HEENT: PERRL/EOMI Respiratory: Lungs Clear, Normal Breath Sounds, No Accessory Muscle Use, No Respiratory Distress Cardiovascular: Regular Rate, Rhythm, No Murmur Gastrointestinal: non tender, soft, no organomegaly Extremity: Pedal Edema (Right> left. Pt states this is normal for her.) Neurologic/Psychiatric: Alert, Oriented x3 Assessment/Plan Assessment/Plan Assessment/Plan Anemia - nothing found in Upper GI or Colon to explain, most likely bleeding diverticula Hiatal hernia, Gastritis, Diverticulosis, Internal hemorrhoids Plan: Pt denies any bloody stools. She is stable and ok to DC from surgery standpoint. Supervisory-Addendum Brief Verification & Attestation Participated in pt care: history, MDM, physical Personally performed: exam, history, MDM, supervision of care Care discussed with: Medical Student Procedures: n/a Verification and Attestation of Medical Student E/M Service A medical student performed and documented this service. I then reviewed and verified all information documented by the medical student and made modifications to such information, when appropriate. I personally performed a physical exam, medical decision making and then discussed any differences between the notes and made revisions as necessary to create one note. Ritesh Marinelli , 09/18/21 , 19:18 GENIA MADRID Sep 18, 2021 11:32 RITESH MARINELLI DO Sep 18, 2021 19:14
[2021-09-18] MEDS ORDERED: PANT40TA52 PO (11:39)
[2021-09-18 12:00] VITALS: BP 138/78
[2021-09-18 12:45] VITALS: BP 138/78
== END 2021-09-18 12:47 | disposition home or self-care (01) ==
LOC: EDUNIT# 10:04 → ER 10:06 → 4TH 13:03
PROVIDERS: ADMIT Internal Medicine; ATTEND Internal Medicine
DX: K62.5 Hemorrhage of anus and rectum (principal); K21.00 Gastro-esophageal reflux disease with esophagitis, without bleeding; K44.9 Diaphragmatic hernia without obstruction or gangrene; K31.7 Polyp of stomach and duodenum; K57.30 Diverticulosis of large intestine without perforation or abscess without bleeding; K64.8 Other hemorrhoids; I10 Essential (primary) hypertension; E78.5 Hyperlipidemia, unspecified; G47.30 Sleep apnea, unspecified; E78.00 Pure hypercholesterolemia, unspecified; E03.9 Hypothyroidism, unspecified; M25.511 Pain in right shoulder; Z79.899 Other long term (current) drug therapy; Z79.890 Hormone replacement therapy; Z79.82 Long term (current) use of aspirin; Z80.51 Family history of malignant neoplasm of kidney
CPT/HCPCS: 36415; 80048; 80053; 85014; 85018; 85025; 85610; 85730; 86850; 86900; 86901; 87081; 87635; 87636